=== PATIENT | female | born 1995 | race Caucasian/White ===

== ENCOUNTER 2017-12-21 01:16 | Emergency (ER) | payer SELFPAY ==
[2017-12-21 03:12] VITALS: BP 134/85
== END 2017-12-21 04:07 | disposition home or self-care (01) ==
LOC: ED 01:16
DX: S00.83XA Contusion of other part of head, initial encounter (principal); V49.9XXA Car occupant (driver) (passenger) injured in unspecified traffic accident, initial encounter; Y93.89 Activity, other specified; Y92.89 Other specified places as the place of occurrence of the external cause; Y99.8 Other external cause status
CPT/HCPCS: 90715